=== PATIENT | female | born 1990 | race Asian ===

== ENCOUNTER 2021-11-03 18:18 | Emergency (ER) | payer SELFPAY ==
[~2021-11-03] VITALS: Ht 170.2 cm; Wt 61.2 kg
[2021-11-03 18:55] VITALS: BP_SYST 116
--- NOTE | 2021-11-03 18:55 | NUR ---
Pt triaged and placed in waiting room pending bed availability.
--- NOTE | 2021-11-03 19:45 | NUR ---
Dr. Champion calling patient for assessment. Patient not in waiting room. will attempt again
--- NOTE | 2021-11-03 20:00 | NUR ---
Dr. Champion calling for patient to assess. Patient not in waiting room.
--- NOTE | 2021-11-03 20:17 | NUR ---
patient called for bed placement. Patient not in waiting room. Patient left without being seen
== END 2021-11-03 20:17 | disposition left against medical advice (07) ==
LOC: SED 18:18
DX: R20.2 Paresthesia of skin (principal); Z53.21 Procedure and treatment not carried out due to patient leaving prior to being seen by health care provider